=== PATIENT | female | born 1965 | race African-American/Black ===

== ENCOUNTER 2018-05-10 12:27 | Emergency (ER) | payer OTHER ==
[~2018-05-10] VITALS: Ht 172.7 cm; Wt 94.8 kg
[~2018-05-10 12:27] MED LIST: ANTIVERT25 M1 PO; CELEBREX100 MG PO; NASONEX17 GM NS; SKELAXIN800 MG PO
[2018-05-10] MEDS ORDERED: AMOXICILLIN400 MG PO (12:58)
[2018-05-10] MEDS ORDERED: IBUPROFEN800 MG PO (12:58)
== END 2018-05-10 15:31 | disposition home or self-care (01) ==
LOC: ER 12:27
DX: R07.89 Other chest pain (principal); F41.8 Other specified anxiety disorders

== ENCOUNTER 2019-06-26 11:03 | Emergency (ER) | payer OTHER ==
[~2019-06-26] VITALS: Ht 172.7 cm; Wt 99.8 kg
[~2019-06-26 11:03] MED LIST changes: +AMOXICILLIN400 MG PO; +IBUPROFEN800 MG PO
== END 2019-06-26 16:01 | disposition home or self-care (01) ==
LOC: ER 11:03
DX: M62.838 Other muscle spasm (principal)

== ENCOUNTER 2025-02-18 13:36 | Outpatient (CLI) | payer OTHER ==
[2025-02-18 14:19] LABS: URINE APPEARANCE Clear; URINE BILIRRUBIN Negative (NEGATIVE); URINE BLOOD Negative; URINE COLOR Yellow; URINE GLUCOSE Negative (NEGATIVE); URINE KETONE Negative (NEGATIVE); URINE LEUKOCYTE Negative; URINE NITRATE Negative; URINE PROTEIN Negative (NEGATIVE); URINE UROBILINOGEN 0.2 E.U./dl
[2025-02-18 14:21] LABS: BASO % 0.5 % (0.1-1.2); EOS # 0.07 (0.04-0.54); EOS % 0.9 % (0.7-7.0); LYMPH # 2.74 (1.18-3.74); LYMPH % 35.3 % (19.3-53.1); MEAN PLATELET VOLUME 9.70 fl (9.4-12.4); MONO # 0.58 (0.24-0.82); MONO % 7.5 % (4.7-12.5); NEUT # 4.31 (1.56-6.13); NEUT % 55.5 % (34.0-71.1); RED CELL DISTRIBUTION WIDTH 14.2 % (11.6-14.4)
[2025-02-18 14:22] LABS: URINE BACTERIA 1172.2 uL (0.0-1933); URINE EPITHELIAL CELLS 9.8 uL (0.0-38.8); URINE RBC 4.6 uL (0.0-20.8); URINE WBC 5.9 uL (0.0-23.2)
[2025-02-18 14:30] LABS: URINE CAST 0.87 uL (0.0-1.40)
[2025-02-18 15:13] LABS: ALT/SGPT 26.0 U/L (12-78); AST/SGOT 16.0 U/L (15-37); BILIRUBIN TOTAL 0.47 mg/dL (0.3-1.2); BUN CREA RATIO 14.0 (7.0-25.0); CHOL HDL RATIO 4.1 (0-5.0); CREATININE SERUM 0.71 mg/dL (0.55-1.02); GFR 84.85; GLOBULINA 3.2 G/DL (2.4-3.5); GLUCOSE FASTING 87.0 mg/dL (65-100); HDL 53.0 mg/dl (40-60); LDL 139.0 mg/dl (0-130); OSMOLALITY SERUM 282.0 MOSM/KG (275-295); T4 FREE 1.12 NG/ML (0.76-1.46); TSH 0.779 uIU/mL (0.358-3.74); VLDL 25.0 (0-39)
== END 2025-02-18 13:41 | disposition home or self-care (01) ==
LOC: LAB 13:36
DX: D50.9 Iron deficiency anemia, unspecified (principal); E55.9 Vitamin D deficiency, unspecified; E66.9 Obesity, unspecified; E03.9 Hypothyroidism, unspecified; N39.0 Urinary tract infection, site not specified; E78.00 Pure hypercholesterolemia, unspecified; E11.9 Type 2 diabetes mellitus without complications